=== PATIENT | female | born 1985 | race American Indian/Alaskan Native ===

== ENCOUNTER 2017-04-13 14:52 | Emergency (ER) | payer SELFPAY ==
[2017-04-13 16:40] VITALS: BP 138/74
--- NOTE | 2017-04-13 16:43 | Emergency Department Report ---
Entered by DANIEL YOUNG, acting as scribe for ROMAN JOSEPH NP. Chief Complaint: Back Pain/Injury Stated Complaint: FALL Time Seen by Provider: 04/13/17 16:38 - HPI History of Present Illness: 31 y/o female, presents with 8/10, constant, achy back and buttocks pain s/p fall that occurred yesterday @ 0800. Pt denies ETOH and tobacco use. Pt denies any chance of . - ROS Review of Systems: +back pain +buttocks pain - Exam Vital Signs: Vital Signs 04/13/17 16:37 Temperature 98.2 F Pulse Rate 64 Respiratory 18 Rate Blood Pressure 138/74 O2 Sat by Pulse 100 Oximetry Physical Exam: Back: No CVA tenderness. Lumbar tenderness noted steady gait MSE screening note: Focused history and physical exam performed. Due to findings the following was ordered: xr ED Disposition for MSE Condition: Stable This documentation as recorded by the scribe,DANIEL YOUNG,accurately reflects the service I personally performed and the decisions made by OPAL parker TRACY M, NP.
--- NOTE | 2017-04-13 19:39 | XRay Report ---
FINAL REPORT EXAM: XR SPINE SACRUM/COCCYX 2+V HISTORY: pain sp fall TECHNIQUE: AP, angled, and lateral views of the sacrum and coccyx PRIORS: None. FINDINGS: Sacroiliac joints are maintained with no evidence for sclerosis. No definite evidence for acute fracture is noted. Sacral arches are maintained. Coccyx appears normal without fracture. The presacral soft tissues are normal. Numerous calcified phleboliths in the pelvis are noted bilaterally Incidental spondylolysis at L5 is noted. IMPRESSION: Negative views of the sacrum and coccyx
--- NOTE | 2017-04-13 19:41 | XRay Report ---
FINAL REPORT EXAM: XR SPINE LUMBOSACRAL 2-3V HISTORY: pain sp fall TECHNIQUE: AP and lateral views of the lumbar spine PRIORS: None. FINDINGS: There are 4 lumbar type vertebral bodies, a normal variant. The vertebral body heights and disc spaces are well maintained. The alignment is normal. There is bilateral spondylolysis of L5. No evidence for spondylolisthesis is seen. Pedicles are intact bilaterally at all levels. The paraspinal soft tissues are unremarkable. IMPRESSION: No acute abnormality in the lumbar spine. Bilateral spondylolysis at L5.
--- NOTE | 2017-04-13 20:18 | Emergency Department Report ---
ED Back Pain/Injury HPI - General Chief Complaint: Fall Stated Complaint: FALL Time Seen by Provider: 04/13/17 16:40 Source: patient Mode of arrival: Ambulatory Limitations: No Limitations - History of Present Illness Initial Comments: PT c/o low back pain sp fall at work yesterday morning. PT states she was picking up items and her foot got stuck and she lost her balance. PT states she fell backwards onto her bottom. PT states she was holding items in her hand and could not break her fall. PT states her low back hurt and she was told to soak in Epsom salt. PT states that she did not get any relief. PT denies chi, syncope or any other injury MD Complaint: back injury, fall -: Sudden, days(s) Similar Symptoms Previously: No Place: work Radiation: none Severity: severe Severity scale (0 -10): 8 Quality: sharp Consistency: constant Improves With: none Worsens With: sitting upright Context: fall Associated Symptoms: denies: difficulty walking, difficulty urinating, incontinence, abdominal pain, loss of appetite, nausea/vomiting - Related Data Previous Rx's Medication Instructions Recorded Last Taken Type Acetaminophen/Codeine [Tylenol #3] 1 tab PO Q6H PRN #12 tab 04/13/17 Unknown Rx Ibuprofen [Motrin] 600 mg PO Q8H PRN #15 tablet 04/13/17 Unknown Rx methOCARBAMOL [Robaxin TAB] 500 mg PO Q6H PRN #15 tablet 04/13/17 Unknown Rx Allergies Allergy/AdvReac Type Severity Reaction Status Date / Time No Known Allergies Allergy Unverified 04/13/17 16:40 ED Review of Systems ROS: Stated complaint: FALL Other details as noted in HPI Comment: All other systems reviewed and negative Cardiovascular: denies: chest pain, syncope Gastrointestinal: denies: abdominal pain, nausea, vomiting Genitourinary: denies: abnormal menses (on cycle currently ) Musculoskeletal: as per HPI, back pain Neurological: denies: headache, weakness, confusion, abnormal gait, vertigo ED Past Medical Hx - Past Medical History Previous Medical History?: No - Surgical History Past Surgical History?: No Additional Surgical History: - Social History Smoking Status: Never Smoker Substance Use Type: None - Medications Home Medications: Home Medications Medication Instructions Recorded Confirmed Last Taken Type Acetaminophen/Codeine [Tylenol #3] 1 tab PO Q6H PRN #12 tab 04/13/17 Unknown Rx Ibuprofen [Motrin] 600 mg PO Q8H PRN #15 tablet 04/13/17 Unknown Rx methOCARBAMOL [Robaxin TAB] 500 mg PO Q6H PRN #15 tablet 04/13/17 Unknown Rx ED Physical Exam - General Limitations: No Limitations General appearance: alert, in no apparent distress - Head Head exam: Present: atraumatic, normocephalic, normal inspection - Eye Eye exam: Present: normal appearance. Absent: conjunctival injection - ENT ENT exam: Present: normal exam, mucous membranes moist, normal external ear exam - Neck Neck exam: Present: normal inspection, full ROM, other (no post mid line C- spine tenderness ). Absent: tenderness - Respiratory Respiratory exam: Present: normal lung sounds bilaterally. Absent: respiratory distress, chest wall tenderness - Cardiovascular Cardiovascular Exam: Present: regular rate, normal rhythm, normal heart sounds - GI/Abdominal GI/Abdominal exam: Present: soft. Absent: tenderness - Extremities Exam Extremities exam: Present: normal inspection, full ROM - Back Exam Back exam: Present: normal inspection, full ROM, tenderness, muscle spasm, paraspinal tenderness, vertebral tenderness (to L spine ). Absent: CVA tenderness (R), CVA tenderness (L) - Neurological Exam Neurological exam: Present: alert, oriented X3, CN II-XII intact, normal gait - Psychiatric Psychiatric exam: Present: normal affect, normal mood - Skin Skin exam: Present: warm, dry, intact, normal color ED Course Vital Signs 04/13/17 16:37 Temperature 98.2 F Pulse Rate 64 Respiratory 18 Rate Blood Pressure 138/74 O2 Sat by Pulse 100 Oximetry - Reevaluation(s) Reevaluation #1: 04/13/17 20:35 PT aware of XR results. PT has no questions at this time. - Pulse Oximetry Interpretation Digit-Finger Initial Pulse Oximetry Readin Actions Taken: none ED Medical Decision Making - Radiology Data Radiology results: report reviewed XR L spine - NAP XR Sacrum - NAP - Differential Diagnosis fracture strain Critical Care Time: No Critical care attestation.: If time is entered above; I have spent that time in minutes in the direct care of this critically ill patient, excluding procedure time. ED Disposition Clinical Impression: Fall Qualifiers: Encounter type: initial encounter Qualified Code(s): W19.XXXA - Unspecified fall, initial encounter Acute low back pain Qualifiers: Back pain laterality: midline Sciatica presence: without sciatica Qualified Code(s): M54.5 - Low back pain Disposition: - TO HOME OR SELFCARE Is pt being admited?: No Does the pt Need Aspirin: No Condition: Stable Instructions: Acute Low Back Pain (ED), Back Pain (ED), Fall Prevention (ED) Additional Instructions: No driving or alcohol after taking Tylenol #3 or Robaxin for your pain Follow up with your PCP in 3-5 days You may need further outpatient imaging to evaluate your back pain - your PCP can arrange this for you As we discussed, follow up with your employer Prescriptions: Acetaminophen/Codeine [Tylenol #3] 1 tab PO Q6H PRN #12 tab PRN Reason: Pain , Severe (7-10) Ibuprofen [Motrin] 600 mg PO Q8H PRN #15 tablet PRN Reason: Pain methOCARBAMOL [Robaxin TAB] 500 mg PO Q6H PRN #15 tablet PRN Reason: Muscle Spasm Referrals: PRIMARY MD JIMENA [Primary Care Provider] - 3-5 Days JESSICA CYR MD [Staff Physician] - 3-5 Days Forms: Work/School Release Form(ED) Time of Disposition: 20:38
[2017-04-13] MEDS ORDERED: MOTRIN PO ONE (20:22)
== END 2017-04-13 20:40 | disposition home or self-care (01) ==
LOC: EDSEX → ED 14:52
DX: M54.5 Low back pain (principal); W19.XXXA Unspecified fall, initial encounter; Y93.89 Activity, other specified; Y99.9 Unspecified external cause status; Y92.89 Other specified places as the place of occurrence of the external cause
CPT/HCPCS: 72100; 72220

== ENCOUNTER 2017-11-30 18:42 | Emergency (ER) | payer OTHER ==
[2017-11-30] MEDS ORDERED: MOTRIN PO ONE (23:40)
--- NOTE | 2017-11-30 23:41 | Emergency Department Report ---
- General Chief Complaint: Upper Respiratory Infection Stated Complaint: FLU LIKE SYMPTOMS Time Seen by Provider: 11/30/17 23:12 Source: patient Mode of arrival: Ambulatory Limitations: No Limitations - History of Present Illness Initial Comments: 32-year-old female past medical history none presents with complaint of 3-4 days of bodyaches intermittent fevers and chills nonproductive cough sore throat and sneezing. Patient is awake alert and oriented 3 nontoxic appearing fully lucid. Possible increased urinary frequency denies dysuria or hematuria. Denies chest pain shortness of breath at rest or abdominal pain. Patient is fully lucid and nontoxic appearing ambulatory without assistance. Denies any sick contacts at home at this time. MD Complaint: cough, nasal congestion Onset/Timin -: days(s) Severity: moderate Severity scale (0 -10): 5 Quality: aching Consistency: intermittent Improves With: nothing Associated Symptoms: myalgias, cough Treatments Prior to Arrival: none - Related Data Previous Rx's Medication Instructions Recorded Last Taken Type Acetaminophen/Codeine [Tylenol #3] 1 tab PO Q6H PRN #12 tab 04/13/17 Unknown Rx Ibuprofen [Motrin] 600 mg PO Q8H PRN #15 tablet 04/13/17 Unknown Rx methOCARBAMOL [Robaxin TAB] 500 mg PO Q6H PRN #15 tablet 04/13/17 Unknown Rx Albuterol Sulfate [Ventolin HFA] 2 puff IH Q4H PRN #1 hfa.aer.ad 12/01/17 Unknown Rx Dextromethorphan/Benzocaine 1 each PO Q4H PRN #1 box 12/01/17 Unknown Rx [Cepacol Sorethroat-Cough Ariadna] Fluticasone [Flonase] 1 spray NS QDAY PRN #1 bottle 12/01/17 Unknown Rx Ibuprofen [Motrin] 600 mg PO Q8H PRN #25 tablet 12/01/17 Unknown Rx Nitrofurantoin Monohyd/M-Cryst 100 mg PO BID #14 capsule 12/01/17 Unknown Rx [Macrobid 100 mg Capsule] Phenylephrine/Dm/Acetaminop/GG 10 ml PO Q6H PRN #1 liquid 12/01/17 Unknown Rx [Mucinex Tamp-Iri-Cuoreraxco Lq] Allergies Allergy/AdvReac Type Severity Reaction Status Date / Time No Known Allergies Allergy Unverified 04/13/17 16:40 ED Review of Systems ROS: Stated complaint: FLU LIKE SYMPTOMS Other details as noted in HPI Constitutional: malaise. denies: chills, fever Eyes: denies: eye pain, eye discharge, vision change ENT: denies: ear pain, throat pain Respiratory: cough. denies: shortness of breath, wheezing Cardiovascular: denies: chest pain, palpitations Endocrine: no symptoms reported Gastrointestinal: denies: abdominal pain, nausea, diarrhea Genitourinary: denies: urgency, dysuria, discharge Musculoskeletal: denies: back pain, joint swelling, arthralgia Skin: denies: rash, lesions Neurological: denies: headache, weakness, paresthesias Psychiatric: denies: anxiety, depression Hematological/Lymphatic: denies: easy bleeding, easy bruising ED Past Medical Hx - Past Medical History Previous Medical History?: No - Surgical History Past Surgical History?: Yes Additional Surgical History: x3 - Social History Smoking Status: Never Smoker Substance Use Type: None - Medications Home Medications: Home Medications Medication Instructions Recorded Confirmed Last Taken Type Acetaminophen/Codeine [Tylenol #3] 1 tab PO Q6H PRN #12 tab 04/13/17 Unknown Rx Ibuprofen [Motrin] 600 mg PO Q8H PRN #15 tablet 04/13/17 Unknown Rx methOCARBAMOL [Robaxin TAB] 500 mg PO Q6H PRN #15 tablet 04/13/17 Unknown Rx Albuterol Sulfate [Ventolin HFA] 2 puff IH Q4H PRN #1 hfa.aer.ad 12/01/17 Unknown Rx Dextromethorphan/Benzocaine 1 each PO Q4H PRN #1 box 12/01/17 Unknown Rx [Cepacol Sorethroat-Cough Ariadna] Fluticasone [Flonase] 1 spray NS QDAY PRN #1 bottle 12/01/17 Unknown Rx Ibuprofen [Motrin] 600 mg PO Q8H PRN #25 tablet 12/01/17 Unknown Rx Nitrofurantoin Monohyd/M-Cryst 100 mg PO BID #14 capsule 12/01/17 Unknown Rx [Macrobid 100 mg Capsule] Phenylephrine/Dm/Acetaminop/GG 10 ml PO Q6H PRN #1 liquid 12/01/17 Unknown Rx [Mucinex Czar-Sef-Buuvapowcv Lq] ED Physical Exam - General Limitations: No Limitations General appearance: alert, in no apparent distress - Head Head exam: Present: atraumatic, normocephalic - Eye Eye exam: Present: normal appearance, PERRL, EOMI - ENT ENT exam: Present: mucous membranes moist - Neck Neck exam: Present: normal inspection - Respiratory Respiratory exam: Present: normal lung sounds bilaterally. Absent: respiratory distress - Cardiovascular Cardiovascular Exam: Present: regular rate, normal rhythm. Absent: systolic murmur, diastolic murmur, rubs, gallop - GI/Abdominal GI/Abdominal exam: Present: soft, normal bowel sounds - Extremities Exam Extremities exam: Present: normal inspection - Back Exam Back exam: Present: normal inspection - Neurological Exam Neurological exam: Present: alert, oriented X3, CN II-XII intact, normal gait - Psychiatric Psychiatric exam: Present: normal affect, normal mood - Skin Skin exam: Present: warm, dry, intact, normal color. Absent: rash ED Course Vital Signs 11/30/17 11/30/17 21:59 22:04 Temperature 99.3 F 99.3 F Pulse Rate 100 H 100 H Respiratory 18 18 Rate Blood Pressure 104/76 104/76 O2 Sat by Pulse 100 100 Oximetry ED Medical Decision Making - Medical Decision Making A/P: Flulike illness, viral syndrome, possible UTI 1-chest x-ray is unremarkable, vital signs stable before discharge. Patient tolerating by mouth fluid and food without difficulty 2-Motrin when necessary, Mucinex when necessary, Flonase. I offered patient Tamiflu. Patient expressed NO interest in taking it after discussion of side effects benefits and risks of taking Tamiflu. Will provide patient with symptomatic treatment 3- I advised patient to follow up with primary care or to return to the ED for any inability to tolerate by mouth fluid or food persistent nausea and vomiting severe fevers and chills or fevers persistently above 100.4F despite antipyretic use, severe lethargy. Patient stated she understood my instructions. I advised patient to remain well-hydrated. 4- as there is some evidence of leukocyte esterase and patient did say she may have slightly increased urinary frequency will treat empirically with Macrobid. Urine culture sent Critical care attestation.: If time is entered above; I have spent that time in minutes in the direct care of this critically ill patient, excluding procedure time. ED Disposition Clinical Impression: Flu-like symptoms Upper respiratory infection Qualifiers: URI type: unspecified viral URI Qualified Code(s): J06.9 - Acute upper respiratory infection, unspecified Disposition: DC- TO HOME OR SELFCARE Is pt being admited?: No Does the pt Need Aspirin: No Condition: Stable Instructions: Viral Syndrome (ED), Cold Symptoms (ED), Urinary Tract Infection in Women (ED) Prescriptions: Albuterol Sulfate [Ventolin HFA] 2 puff IH Q4H PRN #1 hfa.aer.ad PRN Reason: Shortness Of Breath Dextromethorphan/Benzocaine [Cepacol Sorethroat-Cough Ariadna] 1 each PO Q4H PRN #1 box PRN Reason: Sore Throat Fluticasone [Flonase] 1 spray NS QDAY PRN #1 bottle PRN Reason: Congestion Ibuprofen [Motrin] 600 mg PO Q8H PRN #25 tablet PRN Reason: Pain Nitrofurantoin Monohyd/M-Cryst [Macrobid 100 mg Capsule] 100 mg PO BID #14 capsule Phenylephrine/Dm/Acetaminop/GG [Mucinex Lnfu-Ppr-Dyoqrhjtvi Lq] 10 ml PO Q6H PRN #1 liquid PRN Reason: Cough Referrals: [facility] [Outside] - 3-5 Days [facility] [Outside] - 3-5 Days Forms: Work/School Release Form(ED) Time of Disposition: 01:59
--- NOTE | 2017-12-01 00:35 | XRay Report ---
FINAL REPORT EXAM: XR CHEST ROUTINE 2V HISTORY: cough TECHNIQUE: PA and lateral views of the chest were submitted. FINDINGS: The heart size and mediastinum appear normal. The lungs are clear. Pleural fluid is not seen. The bones and soft tissues are well maintained. IMPRESSION: Normal chest.
[2017-12-01 00:52] LABS: HCG Qualitative,Urine Negative (Negative)
[2017-12-01 00:58] LABS: Bilirubin,Urine NEG (Negative); Blood,Urine NEG (Negative); Color,Urine Yellow (Yellow)
[2017-12-01 00:59] LABS: Mucus,Urine 1+ /HPF; Protein,Urine <15 mg/dL mg/dL (Negative)
[2017-12-01 02:45] VITALS: BP 99/61
== END 2017-12-01 02:05 | disposition home or self-care (01) ==
LOC: ED 18:42
DX: J06.9 Acute upper respiratory infection, unspecified (principal)
CPT/HCPCS: 71046; 81001; 81025; 87086; 87116; 87400; 87430

== ENCOUNTER 2018-06-08 16:03 | Emergency (ER) | payer OTHER ==
[2018-06-08 19:55] VITALS: BP 101/62
[2018-06-08] MEDS ORDERED: TORADOL IM ONE (20:59)
--- NOTE | 2018-06-08 21:02 | Emergency Department Report ---
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 there is no numbness no tingling or paralysis to loss or decrease in bowel or bladder function or dysuria frequency or urgency no vaginal discharge or bleeding patient states doing repetitive Lifting heavy boxes daily pain described as 4/10 radiating from the low back to right lower leg or shortness completed work duties improves with rest and elevation and NSAIDs patient remains ambulatory to baseline without weakness Per patient MD Complaint: back pain, back injury Onset/Timin -: week(s) Similar Symptoms Previously: Yes Place: work Radiation: buttocks, right leg Severity: moderate Severity scale (0 -10): 4 Quality: burning, sharp Consistency: intermittent Improves With: none, supine Worsens With: movement, sitting upright, walking Context: turning/twisting, bending Associated Symptoms: denies: numbness, difficulty urinating, incontinence, fever /chills - Related Data Previous Rx's Medication Instructions Recorded Last Taken Type Acetaminophen/Codeine [Tylenol #3] 1 tab PO Q6H PRN #12 tab 04/13/17 Unknown Rx Ibuprofen [Motrin] 600 mg PO Q8H PRN #15 tablet 04/13/17 Unknown Rx methOCARBAMOL [Robaxin TAB] 500 mg PO Q6H PRN #15 tablet 04/13/17 Unknown Rx Albuterol Sulfate [Ventolin HFA] 2 puff IH Q4H PRN #1 hfa.aer.ad 12/01/17 Unknown Rx Dextromethorphan/Benzocaine 1 each PO Q4H PRN #1 box 12/01/17 Unknown Rx [Cepacol Sorethroat-Cough Ariadna] Fluticasone [Flonase] 1 spray NS QDAY PRN #1 bottle 12/01/17 Unknown Rx Ibuprofen [Motrin] 600 mg PO Q8H PRN #25 tablet 12/01/17 Unknown Rx Nitrofurantoin Monohyd/M-Cryst 100 mg PO BID #14 capsule 12/01/17 Unknown Rx [Macrobid 100 mg Capsule] Phenylephrine/Dm/Acetaminop/GG 10 ml PO Q6H PRN #1 liquid 03/20/18 Unknown Rx [Mucinex Sxil-Bdz-Pnyqrvusih Lq] Cyclobenzaprine [Flexeril] 10 mg PO TID PRN #30 tablet 06/08/18 Unknown Rx Menthol/Camphor [Gotha Hollister 1 applic TP TID PRN #1 tube 06/08/18 Unknown Rx Ointment] Naproxen [Naprosyn] 500 mg PO BID #30 tablet 06/08/18 Unknown Rx Allergies Allergy/AdvReac Type Severity Reaction Status Date / Time No Known Allergies Allergy Unverified 04/13/17 16:40 ED Review of Systems ROS: Stated complaint: BACK PAIN Other details as noted in HPI Constitutional: denies: chills, fever Eyes: denies: eye pain, eye discharge, vision change ENT: denies: ear pain, throat pain Respiratory: denies: cough, shortness of breath, wheezing Cardiovascular: denies: chest pain, palpitations Endocrine: no symptoms reported Gastrointestinal: denies: abdominal pain, nausea, diarrhea Genitourinary: denies: urgency, dysuria, discharge Musculoskeletal: back pain Skin: denies: rash, lesions Neurological: denies: headache, weakness, numbness, paresthesias, abnormal gait , vertigo Psychiatric: denies: anxiety, depression Hematological/Lymphatic: denies: easy bleeding, easy bruising ED Past Medical Hx - Past Medical History Previous Medical History?: No - Surgical History Past Surgical History?: Yes Additional Surgical History: x3 - Social History Smoking Status: Never Smoker Substance Use Type: None - Medications Home Medications: Home Medications Medication Instructions Recorded Confirmed Last Taken Type Acetaminophen/Codeine [Tylenol #3] 1 tab PO Q6H PRN #12 tab 04/13/17 Unknown Rx Ibuprofen [Motrin] 600 mg PO Q8H PRN #15 tablet 04/13/17 Unknown Rx methOCARBAMOL [Robaxin TAB] 500 mg PO Q6H PRN #15 tablet 04/13/17 Unknown Rx Albuterol Sulfate [Ventolin HFA] 2 puff IH Q4H PRN #1 hfa.aer.ad 12/01/17 Unknown Rx Dextromethorphan/Benzocaine 1 each PO Q4H PRN #1 box 12/01/17 Unknown Rx [Cepacol Sorethroat-Cough Ariadna] Fluticasone [Flonase] 1 spray NS QDAY PRN #1 bottle 12/01/17 Unknown Rx Ibuprofen [Motrin] 600 mg PO Q8H PRN #25 tablet 12/01/17 Unknown Rx Nitrofurantoin Monohyd/M-Cryst 100 mg PO BID #14 capsule 12/01/17 Unknown Rx [Macrobid 100 mg Capsule] Phenylephrine/Dm/Acetaminop/GG 10 ml PO Q6H PRN #1 liquid 12/01/17 Unknown Rx [Mucinex Vudg-Jcw-Fbosayuclz Lq] Cyclobenzaprine [Flexeril] 10 mg PO TID PRN #30 tablet 06/08/18 Unknown Rx Menthol/Camphor [Gotha Hollister 1 applic TP TID PRN #1 tube 06/08/18 Unknown Rx Ointment] Naproxen [Naprosyn] 500 mg PO BID #30 tablet 06/08/18 Unknown Rx ED Physical Exam - General Limitations: No Limitations General appearance: alert, in no apparent distress - Head Head exam: Present: atraumatic, normocephalic - Eye Eye exam: Present: normal appearance - ENT ENT exam: Present: mucous membranes moist - Neck Neck exam: Present: normal inspection, full ROM, lymphadenopathy, thyromegaly - Respiratory Respiratory exam: Present: normal lung sounds bilaterally. Absent: respiratory distress, wheezes, decreased breath sounds, prolonged expiratory - Cardiovascular Cardiovascular Exam: Present: regular rate, normal rhythm. Absent: systolic murmur, diastolic murmur, rubs, gallop - GI/Abdominal GI/Abdominal exam: Present: soft, normal bowel sounds - Rectal Rectal exam: Present: deferred - Extremities Exam Extremities exam: Present: normal inspection, full ROM. Absent: tenderness - Back Exam Back exam: Present: full ROM, tenderness (right lateral lumbar muscle tenderness ), muscle spasm, paraspinal tenderness. Absent: CVA tenderness (L), vertebral tenderness, rash noted - Expanded Back Exam Expanded Back exam: Present: decreased rectal tone. Absent: saddle anesthesia Back exam: Sciatic Notch Tenderness: Left, Positive Straight Leg Raise: Right - Neurological Exam Neurological exam: Present: alert, oriented X3, CN II-XII intact, normal gait, reflexes normal. Absent: motor sensory deficit - Expanded Neurological Exam Expanded Patient oriented to: Present: person, place, time Speech: Present: fluid speech Cranial nerves: EOM's Intact: Normal, Gag Reflex: Normal, Nystagmus: Normal Cerebellar function: Finger to Nose: Normal, Heel to Alvarez: Normal, Romberg: Normal Upper motor neuron: [place] Neglect: Normal, Pronator Drift: Normal Sensory exam: Upper Extremity Light Touch: Normal, Upper Extremity Pin Prick: Normal, Upper Extremity Temperature: Normal, UE 2 Point Discrimination: Normal, Lower Extremity Light Touch: Normal, Lower Extremity Pin Prick: Normal, Lower Extremity Temperature: Normal, LE 2 Point Discrimination: Normal Motor strength exam: RUE: 5, LUE: 5, RLE: 5, LLE: 5 DTR: bicep (R): 2+, bicep (L): 2+, tricep (R): 2+, tricep (L): 2+, knee (R): 2+ Best Eye Response (Manuel): (4) open spontaneously Best Motor Response (Manuel): (6) obeys commands Best Verbal Response (Manuel): (5) oriented [place] Total: 15 - Psychiatric Psychiatric exam: Present: normal affect, normal mood - Skin Skin exam: Present: warm, dry, intact, normal color. Absent: rash ED Course Vital Signs 06/08/18 06/08/18 18:01 19:52 Temperature 98.8 F 97.7 F Pulse Rate 16 L 79 Respiratory 16 18 Rate Blood Pressure 102/63 Blood Pressure 101/62 [Left] O2 Sat by Pulse 100 100 Oximetry ED Medical Decision Making - Medical Decision Making Is low back strain related to overuse injury plan NSAIDs muscle relaxants moist heat therapy O back exercises patient will follow up with PCP in 2-3 days patient verbalizes understanding and agreement same patient for DC'd home in stable condition at this time current pain is decreased to 2/10 Critical care attestation.: If time is entered above; I have spent that time in minutes in the direct care of this critically ill patient, excluding procedure time. ED Disposition Clinical Impression: Low back strain Qualifiers: Encounter type: initial encounter Qualified Code(s): S39.012A - Strain of muscle, fascia and tendon of lower back, initial encounter Disposition: DC-01 TO HOME OR SELFCARE Is pt being admited?: No Does the pt Need Aspirin: No Condition: Good Instructions: Muscle Strain (ED), Low Back Strain (ED), Core Strengthening Exercises (GEN) Prescriptions: Cyclobenzaprine [Flexeril] 10 mg PO TID PRN #30 tablet PRN Reason: Muscle Spasm Menthol/Camphor [Gotha Hollister Ointment] 1 applic TP TID PRN #1 tube PRN Reason: pain Naproxen [Naprosyn] 500 mg PO BID #30 tablet Referrals: PRIMARY CARE, [Primary Care Provider] - 3-5 Days Forms: Work/School Release Form(ED) Time of Disposition: 21:11
== END 2018-06-08 21:22 | disposition home or self-care (01) ==
LOC: ED 16:03
DX: S39.012A Strain of muscle, fascia and tendon of lower back, initial encounter (principal); X50.0XXA Overexertion from strenuous movement or load, initial encounter; Y93.89 Activity, other specified; Y92.69 Other specified industrial and construction area as the place of occurrence of the external cause; Y99.8 Other external cause status
CPT/HCPCS: 96372; 99282; J1885

== ENCOUNTER 2019-06-22 00:05 | Emergency (ER) | payer MEDICAID, OTHER ==
[2019-06-22 01:43] LABS: Bilirubin,Urine NEG (Negative); Blood,Urine NEG (Negative); Color,Urine Yellow (Yellow); Mucus,Urine FEW /HPF; Protein,Urine <15 mg/dL mg/dL (Negative); Urobilinogen,Urine < 2.0 mg/dL (<2.0)
[2019-06-22 01:51] LABS: Alanine Aminotransferase 14 units/L (7-56); Albumin 4.2 g/dL (3.9-5); BUN/Creatinine Ratio 16; Blood Urea Nitrogen 18 mg/dL (7-17); Calcium 8.7 mg/dL (8.4-10.2); Hemolysis Index 22
[2019-06-22 02:15] LABS: Basophils % (Auto) 0.3 % (0.0-1.8); Eosinophils # (Auto) 0.3 K/mm3 (0.0-0.4); Eosinophils % (Auto) 3.9 % (0.0-4.3); Hematocrit 34.8 % (30.3-42.9); Hemoglobin 11.7 gm/dl (10.1-14.3); Mean Corpuscular HGB Conc 34 % (30-34); Mean Corpuscular Volume 84 fl (79-97); Monocytes # (Auto) 0.6 K/mm3 (0.0-0.8); Monocytes % (Auto) 8.1 % (0.0-7.3); Platelet Count 220 K/mm3 (140-440); Red Blood Count 4.14 M/mm3 (3.65-5.03); Red Cell Distribution Width 13.3 % (13.2-15.2)
[2019-06-22 04:27] VITALS: BP 107/50
[2019-06-22] MEDS ORDERED: LIDOCAINE VISCOUS 2% 15 ML ORAL LIQD PO ONE (05:09)
[2019-06-22] MEDS ORDERED: FAMOTIDINE 20 MG TAB PO ONE (05:09)
[2019-06-22] MEDS ORDERED: ALUM-MAG HYDROXIDE-SIMETHICONE 200-200-20MG/5ML ORAL LIQD 30 ML PO ONE (05:09)
[2019-06-22] MEDS ORDERED: ONDANSETRON 4 MG ODT TAB PO ONE (05:09)
[2019-06-22] MEDS ORDERED: DICYCLOMINE 20 MG TAB PO ONE (05:09)
--- NOTE | 2019-06-22 06:06 | Ultrasound Report ---
LIMITED RUQ ABDOMINAL ULTRASOUND INDICATION / CLINICAL INFORMATION: RUQ and Epigastric pain. COMPARISON: No relevant prior imaging study available. FINDINGS: PANCREAS: Visualized portions show no significant abnormality. ABDOMINAL AORTA: No significant abnormality. The proximal aorta measures up to 1.6 cm, the midportion 1.0 cm in the distal portion 1.2 cm. IVC: No significant abnormality.. LIVER: The liver measures 13.7 cm in length. No significant abnormality. Normal hepatopedal blood fl ow in the main portal vein. GALLBLADDER: No significant abnormality. BILE DUCTS: No significant abnormality. Common bile duct measures 2 mm. RIGHT KIDNEY: No significant abnormality visualized. FREE FLUID: None. ADDITIONAL FINDINGS: None. IMPRESSION: 1. No sonographic abnormality of the right upper quadrant. Signer Name: Marybel Simms MD Signed: 06/22/2019 6:02 AM Workstation Name: [id number]
--- NOTE | 2019-06-22 06:32 | Emergency Department Report ---
ED Abdominal Pain HPI - General Chief Complaint: Abdominal Pain Stated Complaint: ABD PAIN NAUSEA HEADACHE Source: patient Mode of arrival: Ambulatory Limitations: No Limitations - History of Present Illness Initial Comments: Patient is a 33-year-old -[place] female with no past medical history except asthma who presents to the ED with acute onset persistent intermittent nausea, vomiting, epigastric pain with a headache for the last 1 month. Patient denies diarrhea, dysuria, urinary frequency and urgency, fever, chills, chest pain, shortness of breath, dizziness, headache, vaginal bleeding, vaginal discharge, or hematuria. MD Complaint: abdominal pain, other (nausea and vomiting) -: Gradual, Sudden, month(s) (1) Location: epigastric Radiation: RUQ Migration to: no migration Severity: moderate Severity scale (0 -10): 4 Quality: cramping, aching Consistency: intermittent Improves With: nothing Worsens With: nothing Associated Symptoms: denies other symptoms, nausea, vomiting. denies: diarrhea, fever, chills, constipation, dysuria, hematemesis, hematochezia, melena, hematuria, anorexia, other - Related Data LMP Date: 06/09/19 Previous Rx's Medication Instructions Recorded Last Taken Type Acetaminophen/Codeine [Tylenol #3] 1 tab PO Q6H PRN #12 tab 04/13/17 Unknown Rx Ibuprofen [Motrin] 600 mg PO Q8H PRN #15 tablet 04/13/17 Unknown Rx methOCARBAMOL [Robaxin TAB] 500 mg PO Q6H PRN #15 tablet 04/13/17 Unknown Rx Albuterol Sulfate [Ventolin HFA] 2 puff IH Q4H PRN #1 hfa.aer.ad 12/01/17 Unknown Rx Dextromethorphan/Benzocaine 1 each PO Q4H PRN #1 box 12/01/17 Unknown Rx [Cepacol Sorethroat-Cough [place]] Fluticasone [Flonase] 1 spray NS QDAY PRN #1 bottle 12/01/17 Unknown Rx Ibuprofen [Motrin] 600 mg PO Q8H PRN #25 tablet 12/01/17 Unknown Rx Nitrofurantoin Monohyd/M-Cryst 100 mg PO BID #14 capsule 12/01/17 Unknown Rx [Macrobid 100 mg Capsule] Phenylephrine/Dm/Acetaminop/GG 10 ml PO Q6H PRN #1 liquid 12/01/17 Unknown Rx [Mucinex Uegr-Aqm-Zjjiikrsoq Lq] Cyclobenzaprine [Flexeril] 10 mg PO TID PRN #30 tablet 06/08/18 Unknown Rx Menthol/Camphor [[place] 1 applic TP TID PRN #1 tube 06/08/18 Unknown Rx Ointment] Naproxen [Naprosyn] 500 mg PO BID #30 tablet 06/08/18 Unknown Rx Dicyclomine [Bentyl] 20 mg PO Q6H PRN #24 tablet 06/22/19 Unknown Rx Ondansetron [Zofran Odt] 4 mg PO Q6HR PRN #20 tab.rapdis 06/22/19 Unknown Rx raNITIdine HCl [Zantac] 150 mg PO Q12H #30 tablet 06/22/19 Unknown Rx Allergies Allergy/AdvReac Type Severity Reaction Status Date / Time No Known Allergies Allergy Verified 06/22/19 00:31 ED Review of Systems ROS: Stated complaint: ABD PAIN NAUSEA HEADACHE Other details as noted in HPI Constitutional: denies: chills, fever Eyes: denies: eye pain, eye discharge, vision change ENT: denies: ear pain, throat pain Respiratory: denies: cough, shortness of breath, wheezing Cardiovascular: denies: chest pain, palpitations Endocrine: no symptoms reported Gastrointestinal: abdominal pain, nausea, vomiting. denies: diarrhea Genitourinary: denies: urgency, dysuria, discharge Musculoskeletal: denies: back pain, joint swelling, arthralgia Skin: denies: rash, lesions Neurological: denies: headache, weakness, paresthesias Psychiatric: denies: anxiety, depression Hematological/Lymphatic: denies: easy bleeding, easy bruising ED Past Medical Hx - Past Medical History Previous Medical History?: No - Surgical History Past Surgical History?: Yes Additional Surgical History: x3 - Social History Smoking Status: Never Smoker Substance Use Type: None - Medications Home Medications: Home Medications Medication Instructions Recorded Confirmed Last Taken Type Acetaminophen/Codeine [Tylenol #3] 1 tab PO Q6H PRN #12 tab 04/13/17 Unknown Rx Ibuprofen [Motrin] 600 mg PO Q8H PRN #15 tablet 04/13/17 Unknown Rx methOCARBAMOL [Robaxin TAB] 500 mg PO Q6H PRN #15 tablet 04/13/17 Unknown Rx Albuterol Sulfate [Ventolin HFA] 2 puff IH Q4H PRN #1 hfa.aer.ad 12/01/17 Unknown Rx Dextromethorphan/Benzocaine 1 each PO Q4H PRN #1 box 12/01/17 Unknown Rx [Cepacol Sorethroat-Cough [place]] Fluticasone [Flonase] 1 spray NS QDAY PRN #1 bottle 12/01/17 Unknown Rx Ibuprofen [Motrin] 600 mg PO Q8H PRN #25 tablet 12/01/17 Unknown Rx Nitrofurantoin Monohyd/M-Cryst 100 mg PO BID #14 capsule 12/01/17 Unknown Rx [Macrobid 100 mg Capsule] Phenylephrine/Dm/Acetaminop/GG 10 ml PO Q6H PRN #1 liquid 12/01/17 Unknown Rx [Mucinex Ytdj-Qqs-Zwxdksulww Lq] Cyclobenzaprine [Flexeril] 10 mg PO TID PRN #30 tablet 06/08/18 Unknown Rx Menthol/Camphor [[place] 1 applic TP TID PRN #1 tube 06/08/18 Unknown Rx Ointment] Naproxen [Naprosyn] 500 mg PO BID #30 tablet 06/08/18 Unknown Rx Dicyclomine [Bentyl] 20 mg PO Q6H PRN #24 tablet 06/22/19 Unknown Rx Ondansetron [Zofran Odt] 4 mg PO Q6HR PRN #20 tab.rapdis 06/22/19 Unknown Rx raNITIdine HCl [Zantac] 150 mg PO Q12H #30 tablet 06/22/19 Unknown Rx ED Physical Exam - General Limitations: No Limitations General appearance: alert, in no apparent distress - Head Head exam: Present: atraumatic, normocephalic, normal inspection - Eye Eye exam: Present: normal appearance, PERRL, EOMI Pupils: Present: normal accommodation - ENT ENT exam: Present: normal exam, normal orophraynx, mucous membranes moist, TM's normal bilaterally, normal external ear exam - Neck Neck exam: Present: normal inspection, full ROM. Absent: tenderness, lymphadenopathy, thyromegaly - Respiratory Respiratory exam: Present: normal lung sounds bilaterally. Absent: respiratory distress, wheezes, chest wall tenderness, accessory muscle use - Cardiovascular Cardiovascular Exam: Present: regular rate, normal rhythm, normal heart sounds. Absent: systolic murmur, diastolic murmur, rubs, gallop - GI/Abdominal GI/Abdominal exam: Present: soft, normal bowel sounds. Absent: tenderness, guarding, rebound, organomegaly - Extremities Exam Extremities exam: Present: normal inspection, full ROM, normal capillary refill - Back Exam Back exam: Present: normal inspection, full ROM, CVA tenderness (L) - Neurological Exam Neurological exam: Present: alert, oriented X3, CN II-XII intact, normal gait, reflexes normal - Psychiatric Psychiatric exam: Present: normal affect, normal mood - Skin Skin exam: Present: warm, dry, intact, normal color. Absent: rash ED Course Vital Signs 06/22/19 06/22/19 00:30 04:26 Temperature 98.5 F 98.4 F Pulse Rate 90 72 Respiratory 16 16 Rate Blood Pressure 114/78 107/50 O2 Sat by Pulse 100 100 Oximetry - Reevaluation(s) Reevaluation #1: 06/22/19 06:34 This is a 33-year-old female who presented to the ED with epigastric pain intermittently for the last 1 month with nausea, vomiting and headache. In the ED, patient is alert and oriented 3 and is not in distress. Lab test results were reviewed and are all unremarkable including urinalysis. Gallbladder ultrasound is also unremarkable with no cholelithiasis or cholecystitis. Patient was treated in the ED with antiemetics and pain medications. On reevaluation, patient felt better and was discharged home on medications for GERD and antiemetics. Patient was advised to follow-up with her primary care physician in 7-10 days for reevaluation. 06/22/19 06:35 ED Medical Decision Making - Lab Data Result diagrams: 06/22/19 00:39 06/22/19 00:39 - Radiology Data Radiology results: report reviewed, image reviewed Findings [facility] [address] [place] [address] Ultrasound Report Signed Patient: JAYME LOVELACE MR#: [id number] : 1985 Acct:[id number] Age/Sex: 33 / F ADM Date: 06/22/19 Loc: ED Attending Dr: Ordering Physician: PAULA HANCOCK Date of Service: 06/22/19 Procedure(s): US abdomen limited Accession Number(s): [id number] cc: PAULA HANCOCK LIMITED RUQ ABDOMINAL ULTRASOUND INDICATION / CLINICAL INFORMATION: RUQ and Epigastric pain. COMPARISON: No relevant prior imaging study available. FINDINGS: PANCREAS: Visualized portions show no significant abnormality. ABDOMINAL AORTA: No significant abnormality. The proximal aorta measures up to 1.6 cm, the midportion 1.0 cm in the distal portion 1.2 cm. IVC: No significant abnormality.. LIVER: The liver measures 13.7 cm in length. No significant abnormality. Normal hepatopedal blood flow in the main portal vein. GALLBLADDER: No significant abnormality. BILE DUCTS: No significant abnormality. Common bile duct measures 2 mm. RIGHT KIDNEY: No significant abnormality visualized. FREE FLUID: None. ADDITIONAL FINDINGS: None. IMPRESSION: 1. No sonographic abnormality of the right upper quadrant. Signer Name: Marybel Simms MD Signed: 06/22/2019 6:02 AM Workstation Name: [id number] Transcribed By: [facility] Dictated By: Marybel Simms MD Electronically Authenticated By: Marybel Simms MD Signed Date/Time: 06/22/19 0602 - Medical Decision Making This is a 33-year-old female who presented to the ED with epigastric pain inter mittently for the last 1 month with nausea, vomiting and headache. In the ED, patient is alert and oriented 3 and is not in distress. Lab test results were reviewed and are all unremarkable including urinalysis. Gallbladder ultrasound is also unremarkable with no cholelithiasis or cholecystitis. Patient was treated in the ED with antiemetics and pain medications. On reevaluation, patient felt better and was discharged home on medications for GERD and antiemetics. Patient was advised to follow-up with her primary care physician in 7-10 days for reevaluation - Differential Diagnosis abdominal pain; Cholelithiasis; GERD; Gatritis; Acute UTI Critical care attestation.: If time is entered above; I have spent that time in minutes in the direct care of this critically ill patient, excluding procedure time. ED Disposition Clinical Impression: GERD without esophagitis, Nausea and vomiting in adult Abdominal pain Qualifiers: Abdominal location: epigastric Qualified Code(s): R10.13 - Epigastric pain Disposition: DC- TO HOME OR SELFCARE Is pt being admited?: No Does the pt Need Aspirin: No Condition: Stable Instructions: Abdominal Pain (ED), Gastroesophageal Reflux Disease (ED), Acute Nausea and Vomiting (ED) Additional Instructions: Take medication with food, drink plenty of fluids and follow-up with your primary care physician in 5-7 days for reevaluation. Return to the ED immediately if symptoms get worse. Prescriptions: Dicyclomine [Bentyl] 20 mg PO Q6H PRN #24 tablet PRN Reason: ABDOMINAL PAIN raNITIdine HCl [Zantac] 150 mg PO Q12H #30 tablet Ondansetron [Zofran Odt] 4 mg PO Q6HR PRN #20 tab.rapdis PRN Reason: Nausea Referrals: PRIMARY CARE, [Primary Care Provider] - 3-5 Days Time of Disposition: 06:29 Print Language: YI
== END 2019-06-22 06:47 | disposition home or self-care (01) ==
LOC: ED 00:05
DX: K21.9 Gastro-esophageal reflux disease without esophagitis (principal); R51 Headache; Z79.899 Other long term (current) drug therapy
CPT/HCPCS: 36415; 76705; 80053; 81001; 84703; 85025; Q0162

== ENCOUNTER 2019-08-03 06:45 | Emergency (ER) | payer BC, OTHER ==
[2019-08-03] MEDS ORDERED: ACETAMINOPHEN 325 MG TAB PO ONE (07:40)
--- NOTE | 2019-08-03 07:41 | Emergency Department Report ---
ED Extremity Problem HPI - General Chief complaint: Extremity Injury, Lower Stated complaint: LEFT FOOT PAIN Time Seen by Provider: 08/03/19 07:25 Source: patient Mode of arrival: Ambulatory Limitations: No Limitations - History of Present Illness Initial comments: 34-year-old female with no significant past medical history presents the ER today, complaining of pain to the dorsal aspect of her left foot for the past 2 weeks. She denies any particular injury. She does admit that she do lots of walking and standing at work. She states that the pain has been constant, worse with ambulation/weightbearing. She describes it as a throbbing pain. She denies any erythema, swelling, bruising, numbness, tingling. Reports some tightness to her left calf area, but no pain. Denies any chest pain, shortness of breath. She denies any history of DVT/PE. She states that she has taken nothing for the pain in the past 2 weeks. MD Complaint: extremity pain, joint paint -: Gradual, week(s) (2) Location: left, other (Foot) -: No myalgia, Yes arthralgia, No fever, No associated dyspnea, No associated chest pain Radiation: none Quality: other (throbbing) Improves with: immobilization, elevation Associated Symptoms: denies other symptoms - Related Data Previous Rx's Medication Instructions Recorded Last Taken Type Acetaminophen/Codeine [Tylenol #3] 1 tab PO Q6H PRN #12 tab 04/13/17 Unknown Rx Ibuprofen [Motrin] 600 mg PO Q8H PRN #15 tablet 04/13/17 Unknown Rx methOCARBAMOL [Robaxin TAB] 500 mg PO Q6H PRN #15 tablet 04/13/17 Unknown Rx Albuterol Sulfate [Ventolin HFA] 2 puff IH Q4H PRN #1 hfa.aer.ad 12/01/17 Unknown Rx Dextromethorphan/Benzocaine 1 each PO Q4H PRN #1 box 12/01/17 Unknown Rx [Cepacol Sorethroat-Cough [place]] Fluticasone [Flonase] 1 spray NS QDAY PRN #1 bottle 12/01/17 Unknown Rx Ibuprofen [Motrin] 600 mg PO Q8H PRN #25 tablet 12/01/17 Unknown Rx Nitrofurantoin Monohyd/M-Cryst 100 mg PO BID #14 capsule 12/01/17 Unknown Rx [Macrobid 100 mg Capsule] Phenylephrine/Dm/Acetaminop/GG 10 ml PO Q6H PRN #1 liquid 12/01/17 Unknown Rx [Mucinex Dayu-Jwl-Bfbclxdsiy Lq] Cyclobenzaprine [Flexeril] 10 mg PO TID PRN #30 tablet 06/08/18 Unknown Rx Menthol/Camphor [[place] 1 applic TP TID PRN #1 tube 06/08/18 Unknown Rx Ointment] Naproxen [Naprosyn] 500 mg PO BID #30 tablet 06/08/18 Unknown Rx Dicyclomine [Bentyl] 20 mg PO Q6H PRN #24 tablet 06/22/19 Unknown Rx Ondansetron [Zofran Odt] 4 mg PO Q6HR PRN #20 tab.rapdis 06/22/19 Unknown Rx raNITIdine HCl [Zantac] 150 mg PO Q12H #30 tablet 06/22/19 Unknown Rx Diclofenac 1% [Diclofenac 1% 100 gm TP TID PRN #1 gel..gram. 08/03/19 Unknown Rx topical gel] Allergies Allergy/AdvReac Type Severity Reaction Status Date / Time No Known Allergies Allergy Verified 06/22/19 00:31 ED Review of Systems ROS: Stated complaint: LEFT FOOT PAIN Other details as noted in HPI Comment: All other systems reviewed and negative Constitutional: denies: chills, fever Cardiovascular: denies: chest pain, palpitations, dyspnea on exertion, edema Musculoskeletal: arthralgia. denies: joint swelling Skin: denies: rash, change in color Neurological: denies: weakness, numbness, paresthesias, abnormal gait ED Past Medical Hx - Past Medical History Previous Medical History?: No - Surgical History Past Surgical History?: Yes Additional Surgical History: x3 - Social History Smoking Status: Never Smoker Substance Use Type: None - Medications Home Medications: Home Medications Medication Instructions Recorded Confirmed Last Taken Type Acetaminophen/Codeine [Tylenol #3] 1 tab PO Q6H PRN #12 tab 04/13/17 Unknown Rx Ibuprofen [Motrin] 600 mg PO Q8H PRN #15 tablet 04/13/17 Unknown Rx methOCARBAMOL [Robaxin TAB] 500 mg PO Q6H PRN #15 tablet 04/13/17 Unknown Rx Albuterol Sulfate [Ventolin HFA] 2 puff IH Q4H PRN #1 hfa.aer.ad 12/01/17 Unknown Rx Dextromethorphan/Benzocaine 1 each PO Q4H PRN #1 box 12/01/17 Unknown Rx [Cepacol Sorethroat-Cough [place]] Fluticasone [Flonase] 1 spray NS QDAY PRN #1 bottle 12/01/17 Unknown Rx Ibuprofen [Motrin] 600 mg PO Q8H PRN #25 tablet 12/01/17 Unknown Rx Nitrofurantoin Monohyd/M-Cryst 100 mg PO BID #14 capsule 12/01/17 Unknown Rx [Macrobid 100 mg Capsule] Phenylephrine/Dm/Acetaminop/GG 10 ml PO Q6H PRN #1 liquid 12/01/17 Unknown Rx [Mucinex Clbv-Jkt-Lurgdlmlpv Lq] Cyclobenzaprine [Flexeril] 10 mg PO TID PRN #30 tablet 06/08/18 Unknown Rx Menthol/Camphor [[place] 1 applic TP TID PRN #1 tube 06/08/18 Unknown Rx Ointment] Naproxen [Naprosyn] 500 mg PO BID #30 tablet 06/08/18 Unknown Rx Dicyclomine [Bentyl] 20 mg PO Q6H PRN #24 tablet 06/22/19 Unknown Rx Ondansetron [Zofran Odt] 4 mg PO Q6HR PRN #20 tab.rapdis 06/22/19 Unknown Rx raNITIdine HCl [Zantac] 150 mg PO Q12H #30 tablet 06/22/19 Unknown Rx Diclofenac 1% [Diclofenac 1% 100 gm TP TID PRN #1 gel..gram. 08/03/19 Unknown Rx topical gel] ED Physical Exam - General Limitations: No Limitations General appearance: alert, in no apparent distress - Head Head exam: Present: atraumatic, normocephalic - Eye Eye exam: Present: normal appearance, PERRL, EOMI Pupils: Present: normal accommodation - Respiratory Respiratory exam: Present: respiratory distress - Cardiovascular Cardiovascular Exam: Present: regular rate - Extremities Exam Extremities exam: Present: normal inspection, full ROM, tenderness (patient has some mild tenderness to palpation along the dorsal aspect of the left foot. No swelling, erythema, no ecchymosis or deformity. Pulses normal. Cap refill normal, sensation intact, ROM of foot and ankle nl. No ttp to left calf but pt reports feeling tight.), normal capillary refill ED Course Vital Signs 08/03/19 08/03/19 06:52 09:29 Temperature 98.9 F Pulse Rate 81 Respiratory 18 16 Rate Blood Pressure 117/68 Blood Pressure 118/70 [Left] O2 Sat by Pulse 100 Oximetry ED Medical Decision Making - Radiology Data Radiology results: report reviewed Critical care attestation.: If time is entered above; I have spent that time in minutes in the direct care of this critically ill patient, excluding procedure time. ED Disposition Clinical Impression: Foot pain, left, Tendonitis of foot Disposition: - TO HOME OR SELFCARE Is pt being admited?: No Does the pt Need Aspirin: No Condition: Stable Instructions: Arthralgia (ED), Tendinitis (ED) Additional Instructions: Use Voltaren gel as prescribed. Rest and elevated foot for the next couple days. Follow up with Ortho/narcotics and vice detective if not better. Prescriptions: Diclofenac 1% [Diclofenac 1% topical gel] 100 gm TP TID PRN #1 gel..gram. PRN Reason: Pain, Moderate (4-6) Referrals: RACHEL MATOS DPM [Staff Physician] - 3-5 Days Forms: Work/School Release Form(ED) Time of Disposition: 09:15
--- NOTE | 2019-08-03 08:42 | Vascular Lab Report ---
DUPLEX DOPPLER LOWER EXTREMITY VEINS, LEFT INDICATION: leg tightness. TECHNIQUE: Duplex doppler imaging was performed through the veins of the left lower extremity using venous compr ession and other maneuvers. COMPARISON: No relevant prior imaging study available. FINDINGS: Left Common femoral vein: Negative. Left Superficial femoral vein: Negative. Left Popliteal vein: Negative. Left Calf veins: Negative. Additional findings: None.. IMPRESSION: 1. No sonographic evidence for DVT in the left lower extremity. Signer Name: Bandar Hargrove MD Signed: 08/03/2019 8:38 AM Workstation Name: [id number]
--- NOTE | 2019-08-03 09:07 | XRay Report ---
Left foot-3 views INDICATION: foot pain. Acute generalized left foot pain COMPARISON: None. IMPRESSION: Mild soft tissue swelling about the forefoot with no acute fracture identified. No sign ificant DJD. Signer Name: Bandar Hargrove MD Signed: 08/03/2019 9:02 AM Workstation Name: [id number]
[2019-08-03 09:31] VITALS: BP 118/70
== END 2019-08-03 09:29 | disposition home or self-care (01) ==
LOC: ED 06:45
DX: M77.9 Enthesopathy, unspecified (principal); Z79.899 Other long term (current) drug therapy

== ENCOUNTER 2020-06-27 16:17 | Emergency (ER) | payer MEDICAID ==
[2020-06-27] MEDS ORDERED: ASPIRIN 325 MG TAB PO ONE (16:36)
[2020-06-28] MEDS ORDERED: SULFAMETHOXAZOLE/TRIMETHOPRIM 800/160MG DS TAB PO ONE (01:22)
[2020-06-28] MEDS ORDERED: predniSONE 20 MG TAB PO ONE (01:22)
[2020-06-28] MEDS ORDERED: IBUPROFEN 800 MG TAB PO ONE (01:22)
--- NOTE | 2020-06-28 01:38 | Emergency Department Report ---
ED Extremity Problem HPI - General Chief complaint: Extremity Problem,Nontraumatic Stated complaint: RT LEG/RT THUMB PAIN Source: patient Mode of arrival: Ambulatory Limitations: No Limitations - History of Present Illness Initial comments: Patient is a 34-year-old -[place] female with a history of chronic low back pain and sciatica presents to the ED with complaint of acute onset persistent severe nontraumatic right thumb pain for the last 2 days. Patient also complains of low back pain that radiates to the right hip and right lower leg for the last 1 week. Patient denies fall, traumatic injury, nausea, vomiting, fever, chills, dysuria, urinary frequency and urgency, dizziness, syncope, chest pain, shortness of breath, abdominal pain, heavy lifting, or bilateral lower extremity weakness. MD Complaint: extremity pain (right thumb pain, swelling; right hip pain radiating to right lower leg) -: Sudden, days(s) (2) Location: right, lower extremity, other (right thumb pain and swelling) History of Same: Yes -: Yes myalgia, Yes arthralgia, No fever, No associated dyspnea, No associated chest pain Radiation: distal Severity scale (0 -10): 8 Quality: aching, sharp Consistency: constant Improves with: nothing Worsens with: weight bearing, exertion, palpation Associated Symptoms: denies other symptoms, arthralgias, rash (Mildly erythematous maculopapular rash on distal right arm). denies: chest pain, shortness of breath, fever, myalgias - Related Data Previous Rx's Medication Instructions Recorded Last Taken Type Acetaminophen/Codeine [Tylenol #3] 1 tab PO Q6H PRN #12 tab 04/13/17 Unknown Rx Ibuprofen [Motrin] 600 mg PO Q8H PRN #15 tablet 04/13/17 Unknown Rx Albuterol Sulfate [Ventolin HFA] 2 puff IH Q4H PRN #1 hfa.aer.ad 12/01/17 Unknown Rx Dextromethorphan/Benzocaine 1 each PO Q4H PRN #1 box 12/01/17 Unknown Rx [Cepacol Sorethroat-Cough [place]] Fluticasone [Flonase] 1 spray NS QDAY PRN #1 bottle 12/01/17 Unknown Rx Ibuprofen [Motrin] 600 mg PO Q8H PRN #25 tablet 12/01/17 Unknown Rx Nitrofurantoin Monohyd/M-Cryst 100 mg PO BID #14 capsule 12/01/17 Unknown Rx [Macrobid 100 mg Capsule] Phenylephrine/Dm/Acetaminop/GG 10 ml PO Q6H PRN #1 liquid 12/01/17 Unknown Rx [Mucinex Oyva-Bkr-Tmkleciura Lq] Cyclobenzaprine [Flexeril] 10 mg PO TID PRN #30 tablet 06/08/18 Unknown Rx Menthol/Camphor [[place] 1 applic TP TID PRN #1 tube 06/08/18 Unknown Rx Ointment] Dicyclomine [Bentyl] 20 mg PO Q6H PRN #24 tablet 06/22/19 Unknown Rx Ondansetron [Zofran Odt] 4 mg PO Q6HR PRN #20 tab.rapdis 06/22/19 Unknown Rx raNITIdine HCL [Zantac] 150 mg PO Q12H #30 tablet 06/22/19 Unknown Rx Diclofenac 1% [Diclofenac 1% 100 gm TP TID PRN #1 gel..gram. 08/03/19 Unknown Rx topical gel] Naproxen [Naprosyn] 500 mg PO BID #30 tablet 06/28/20 Unknown Rx Sulfamethoxazole/Trimethoprim 1 each PO Q12H #20 tablet 06/28/20 Unknown Rx [Bactrim DS TAB] methOCARBAMOL [Robaxin TAB] 500 mg PO Q6H PRN #30 tablet 06/28/20 Unknown Rx predniSONE [Deltasone] 40 mg PO QDAY #12 tab 06/28/20 Unknown Rx traMADoL [Ultram] 50 mg PO Q6HR PRN #12 tablet 06/28/20 Unknown Rx Allergies Allergy/AdvReac Type Severity Reaction Status Date / Time No Known Allergies Allergy Verified 06/22/19 00:31 ED Review of Systems ROS: Stated complaint: RT LEG/RT THUMB PAIN Other details as noted in HPI Constitutional: denies: chills, fever Eyes: denies: eye pain, eye discharge, vision change ENT: denies: ear pain, throat pain Respiratory: denies: cough, shortness of breath, wheezing Cardiovascular: denies: chest pain, palpitations Endocrine: no symptoms reported Gastrointestinal: denies: abdominal pain, nausea, diarrhea Genitourinary: denies: urgency, dysuria, frequency, discharge, abnormal menses Musculoskeletal: joint swelling (Mildly swollen distal right thumb), arthralgia (Right thumb pain with mild swelling), other (Right hip and thigh pain). denies: back pain Skin: rash (Mildly erythematous maculopapular rash on distal right arm with pain), change in color. denies: lesions Neurological: denies: headache, weakness, paresthesias Psychiatric: denies: anxiety, depression Hematological/Lymphatic: denies: easy bleeding, easy bruising ED Past Medical Hx - Past Medical History Previous Medical History?: No - Surgical History Past Surgical History?: No Additional Surgical History: x3 - Social History Smoking Status: Never Smoker Substance Use Type: None - Medications Home Medications: Home Medications Medication Instructions Recorded Confirmed Last Taken Type Acetaminophen/Codeine [Tylenol #3] 1 tab PO Q6H PRN #12 tab 04/13/17 Unknown Rx Ibuprofen [Motrin] 600 mg PO Q8H PRN #15 tablet 04/13/17 Unknown Rx Albuterol Sulfate [Ventolin HFA] 2 puff IH Q4H PRN #1 hfa.aer.ad 12/01/17 Unknown Rx Dextromethorphan/Benzocaine 1 each PO Q4H PRN #1 box 12/01/17 Unknown Rx [Cepacol Sorethroat-Cough [place]] Fluticasone [Flonase] 1 spray NS QDAY PRN #1 bottle 12/01/17 Unknown Rx Ibuprofen [Motrin] 600 mg PO Q8H PRN #25 tablet 12/01/17 Unknown Rx Nitrofurantoin Monohyd/M-Cryst 100 mg PO BID #14 capsule 12/01/17 Unknown Rx [Macrobid 100 mg Capsule] Phenylephrine/Dm/Acetaminop/GG 10 ml PO Q6H PRN #1 liquid 12/01/17 Unknown Rx [Mucinex Xyrm-Drp-Lqgpetbznh Lq] Cyclobenzaprine [Flexeril] 10 mg PO TID PRN #30 tablet 06/08/18 Unknown Rx Menthol/Camphor [[place] 1 applic TP TID PRN #1 tube 06/08/18 Unknown Rx Ointment] Dicyclomine [Bentyl] 20 mg PO Q6H PRN #24 tablet 06/22/19 Unknown Rx Ondansetron [Zofran Odt] 4 mg PO Q6HR PRN #20 tab.rapdis 06/22/19 Unknown Rx raNITIdine HCL [Zantac] 150 mg PO Q12H #30 tablet 06/22/19 Unknown Rx Diclofenac 1% [Diclofenac 1% 100 gm TP TID PRN #1 gel..gram. 08/03/19 Unknown Rx topical gel] Naproxen [Naprosyn] 500 mg PO BID #30 tablet 06/28/20 Unknown Rx Sulfamethoxazole/Trimethoprim 1 each PO Q12H #20 tablet 06/28/20 Unknown Rx [Bactrim DS TAB] methOCARBAMOL [Robaxin TAB] 500 mg PO Q6H PRN #30 tablet 06/28/20 Unknown Rx predniSONE [Deltasone] 40 mg PO QDAY #12 tab 06/28/20 Unknown Rx traMADoL [Ultram] 50 mg PO Q6HR PRN #12 tablet 06/28/20 Unknown Rx ED Physical Exam - General Limitations: No Limitations General appearance: alert, in no apparent distress - Head Head exam: Present: atraumatic, normocephalic, normal inspection - Eye Eye exam: Present: normal appearance, PERRL, EOMI Pupils: Present: normal accommodation - ENT ENT exam: Present: normal exam, normal orophraynx, mucous membranes moist, TM's normal bilaterally, normal external ear exam - Neck Neck exam: Present: normal inspection, full ROM - Respiratory Respiratory exam: Present: normal lung sounds bilaterally. Absent: respiratory distress, wheezes, rales, rhonchi, chest wall tenderness - Cardiovascular Cardiovascular Exam: Present: normal rhythm, tachycardia, normal heart sounds. Absent: systolic murmur, diastolic murmur, rubs, gallop - GI/Abdominal GI/Abdominal exam: Present: soft, normal bowel sounds. Absent: tenderness, guarding, rebound, hyperactive bowel sounds, hypoactive bowel sounds - Extremities Exam Extremities exam: Present: normal inspection, full ROM, tenderness (Palpable severe distal right thumb tenderness with mild swelling due to erythematous maculopapular nonfluctuant rash), normal capillary refill, other (Palpable right hip and right thigh tenderness) - Back Exam Back exam: Present: normal inspection, full ROM, tenderness (Palpable lumbosacral paraspinal musculoskeletal tenderness), muscle spasm, paraspinal tenderness. Absent: CVA tenderness (L), vertebral tenderness - Neurological Exam Neurological exam: Present: alert, oriented X3, CN II-XII intact, normal gait, reflexes normal - Psychiatric Psychiatric exam: Present: normal affect, normal mood - Skin Skin exam: Present: warm, dry, intact, normal color, rash (Erythematous maculopapular nonfluctuant rash on distal right hand with tenderness) ED Course Vital Signs 06/27/20 16:30 Temperature 98.9 F Pulse Rate 103 H Respiratory 20 Rate Blood Pressure 139/79 O2 Sat by Pulse 100 Oximetry ED Medical Decision Making - Medical Decision Making This is a 34-year-old -[place] female with a history of chronic low back pain and sciatica presents to the ED with complaint of acute onset persistent severe nontraumatic right thumb pain for the last 2 days. Patient also complains of low back pain that radiates to the right hip and right lower leg for the last 1 week. In the ED, patient is alert and oriented x3 and is not in distress. Patient was treated for pain in the ED and also given initial oral antibiotics for suspected paronychia of the right thumb. Patient was discharged home on medications including oral antibiotics and was advised to follow-up with her primary care physician in 5 to 7 days for reevaluation or return to the ED immediately if symptoms get worse. - Differential Diagnosis Cellulitis; paronychia; sciatica; muscle spasm; chronic back pain; Critical care attestation.: If time is entered above; I have spent that time in minutes in the direct care of this critically ill patient, excluding procedure time. ED Disposition Clinical Impression: Acute paronychia of right thumb, Spasm of muscle of lower back Chronic low back pain with right-sided sciatica Qualifiers: Back pain laterality: bilateral Qualified Code(s): M54.41 - Lumbago with sciatica, right side; G89.29 - Other chronic pain Disposition: - TO HOME OR SELFCARE Is pt being admited?: No Does the pt Need Aspirin: No Condition: Stable Instructions: Lumbar Radiculopathy (ED), Arthralgia (ED), Paronychia (ED), Muscle Spasm (ED) Additional Instructions: Take medication with food, drink plenty of fluids and follow-up with your primary care physician in 7 to 10 days for reevaluation. Return to the ED immediately if symptoms get worse. Prescriptions: Sulfamethoxazole/Trimethoprim [Bactrim DS TAB] 1 each PO Q12H #20 tablet predniSONE [Deltasone] 40 mg PO QDAY #12 tab Naproxen [Naprosyn] 500 mg PO BID #30 tablet methOCARBAMOL [Robaxin TAB] 500 mg PO Q6H PRN #30 tablet PRN Reason: Muscle Spasm traMADoL [Ultram] 50 mg PO Q6HR PRN #12 tablet PRN Reason: Pain Referrals: [facility] [Provider Group] - 3-5 Days Time of Disposition: 01:36 Print Language: SLOV[place]
[2020-06-28 02:18] VITALS: BP 140/78
== END 2020-06-28 02:17 | disposition home or self-care (01) ==
LOC: ED 16:17
DX: M54.41 Lumbago with sciatica, right side (principal); M62.830 Muscle spasm of back; L03.011 Cellulitis of right finger; Z79.899 Other long term (current) drug therapy; Z98.890 Other specified postprocedural states
CPT/HCPCS: 99282; J7512